=== PATIENT | male | born 1975 | race Two or more races ===

== ENCOUNTER 2024-02-16 20:58 | Emergency (ER) | payer SELFPAY ==
[~2024-02-16] VITALS: Ht 177.8 cm; Wt 80.0 kg
[2024-02-16 21:01] VITALS: BP 132/70; PULSE 88; RESP 16; TEMP 98.5; O2SAT 99
== END 2024-02-16 21:27 | disposition left against medical advice (07) ==
LOC: ER 20:58
DX: F10.129 Alcohol abuse with intoxication, unspecified (principal); Y90.9 Presence of alcohol in blood, level not specified; Z53.21 Procedure and treatment not carried out due to patient leaving prior to being seen by health care provider
CPT/HCPCS: 99281